=== PATIENT | female | born 1985 | race Hispanic/Latino ===

== ENCOUNTER 2020-09-14 15:35 | Emergency (ER) | payer SELFPAY ==
[2020-09-14 16:11] LABS: Bilirubin Large (Negative); Blood, Urine Large (Negative); Clarity Cloudy (Clear); Glucose, Urine (Dipstick) 250 mg/dL (Negative); Ketone, Urine 40 mg/dL (Negative); Leukocyte Large (Negative); Nitrite Positive (Negative); Protein, Urine (Dipstick) > or equal to 300 mg/dL (Neg-Trace); pH, Urine 8.5 (5.0-9.0)
[2020-09-14 16:30] LABS: Urobilinogen 0.2 mg/dL (Less than 2)
[2020-09-14 16:32] LABS: RBC/HPF Greater than 50 HPF (0-3)
[2020-09-14 16:40] LABS: BHCG - Serum Negative (NEGATIVE); Pregs Control Background? CLEAR/WHITE (CLR/WHITE); Pregs Control Bar Appear? YES (CONTROL BAR)
== END 2020-09-14 17:16 | disposition home or self-care (01) ==
LOC: BURERS 15:35
DX: N92.0 Excessive and frequent menstruation with regular cycle (principal)
CPT/HCPCS: 36415; 36416; 81003; 81015; 84703; 87086; 99284

== ENCOUNTER 2023-01-01 11:48 | Emergency (ER) | payer SELFPAY ==
[2023-01-01 12:31] LABS: Specific Gravity 1.026 (1.002-1.036)
[2023-01-01 12:33] LABS: Pregnancy Test - Urine (BHCG) Negative (Negative); Pregu Control Background? CLEAR/WHITE (CLR/WHITE); Pregu Control Bar Appear? YES (CONTROL BAR)
[2023-01-01] MEDS ORDERED: Acetaminophen 500 MG TAB ONE (12:33)
== END 2023-01-01 12:56 | disposition home or self-care (01) ==
LOC: BURERS 11:48
DX: N92.0 Excessive and frequent menstruation with regular cycle (principal)
CPT/HCPCS: 81025; 99284